=== PATIENT | female | born 1955 | race Caucasian/White ===

== ENCOUNTER 2018-04-20 03:54 | Emergency (ER) | payer OTHER ==
[2018-04-20 04:14] VITALS: TEMP 98.4; BMI 35.5
--- NOTE | 2018-04-20 05:34 | PDOC ---
History of Present Illness - General Chief Complaint: Back Pain Stated Complaint: LOWER BACK PAIN Time Seen by Provider: 04/20/18 04:13 History Source: Patient - History of Present Illness Initial Comments: 04/20/18 05:18 62 year old female with b/l lower back painx1 day. took tylenol with minimal relief in pain. reports pain radiating to b/l upper thigh.denies trauma /. fall. patient has been picking up grandson. denies dysuria/ fever/ chills, nausea and vomiting PMHX: chronic back pain; fibromyalgia; sciatica 04/20/18 06:40 Past History - Past Medical History Allergies/Adverse Reactions: Allergies Allergy/AdvReac Type Severity Reaction Status Date / Time ibuprofen Allergy Mild Swelling Verified 04/20/18 04:14 contrast dye AdvReac Uncoded 04/20/18 04:14 Home Medications: Ambulatory Orders Acetaminophen [Tylenol] 325 mg PO QID PRN 11/20/15 Aspirin [ASA -] 81 mg PO DAILY 11/20/15 Pramipexole Di-HCl [Mirapex] 0.25 mg PO DAILY 11/20/15 Topiramate 12.5 mg PO DAILY 11/20/15 Cefuroxime Axetil [Cefuroxime] 500 mg PO BID #20 tablet 04/20/18 Cyclobenzaprine HCl [Flexeril -] 10 mg PO HS PRN #7 tablet 04/20/18 Oxycodone HCl/Acetaminophen [Percocet 5-325 mg Tablet] 1 tab PO Q6H PRN #7 tablet MDD 4 04/20/18 COPD: No Diabetes: Yes HTN: Yes - Immunization History Immunization Up to Date: Yes - Suicide/Smoking/Psychosocial Hx Smoking History: Never smoked Have you smoked in the past 12 months: No Information on smoking cessation initiated: No Hx Alcohol Use: No Drug/Substance Use Hx: No Substance Use Type: None *Physical Exam - Vital Signs Last Vital Signs Temp Pulse Resp BP Pulse Ox 98.4 F 91 H 19 170/68 97 04/20/18 04:11 04/20/18 04:11 04/20/18 04:11 04/20/18 04:11 04/20/18 04:11 - Physical Exam General Appearance: Yes: Appropriately Dressed Respiratory/Chest: positive: Lungs Clear, Normal Breath Sounds Cardiovascular: positive: Regular Rhythm, Regular Rate Gastrointestinal/Abdominal: positive: Normal Bowel Sounds, Soft Musculoskeletal: positive: Muscle Spasm (to b/l lower back pain). negative: Vertebral Tenderness Extremity: positive: Normal Capillary Refill, Normal Inspection, Normal Range of Motion Integumentary: positive: Normal Color, Dry, Warm Neurologic: positive: Fully Oriented, Alert, Normal Mood/Affect Moderate Sedation - Procedure Monitoring Vital Signs: Procedure Monitoring Vital Signs Temperature 98.4 F 04/20/18 04:11 Pulse Rate 91 H 04/20/18 04:11 Respiratory Rate 19 04/20/18 04:11 Blood Pressure 170/68 04/20/18 04:11 O2 Sat by Pulse Oximetry (%) 97 04/20/18 04:11 ED Treatment Course - Medications Given in the ED: ED Medications Discontinued Medications Generic Name Dose Route Start Last Admin Trade Name Freq PRN Reason Stop Dose Admin Oxycodone/Acetaminophen 1 combo 04/20/18 04:22 04/20/18 04:41 Percocet 5/325 - PO 04/20/18 04:23 1 combo ONCE ONE Administration Medical Decision Making - Medical Decision Making 04/20/18 06:05 pain improved after percocet. will 04/20/18 06:46 CT spiral: Fatty liver. No renal stones. No definite evidence of acute pathology will d/c home *DC/Admit/Observation/Transfer Diagnosis at time of Disposition: Musculoskeletal pain Urinary tract infection Qualifiers: Urinary tract infection type: acute cystitis Hematuria presence: without hematuria Qualified Code(s): N30.00 - Acute cystitis without hematuria - Discharge Dispostion Disposition: HOME Condition at time of disposition: Fair - Prescriptions Prescriptions: Cefuroxime Axetil [Cefuroxime] 500 mg PO BID #20 tablet Cyclobenzaprine HCl [Flexeril -] 10 mg PO HS PRN #7 tablet PRN Reason: Muscle Spasms Oxycodone HCl/Acetaminophen [Percocet 5-325 mg Tablet] 1 tab PO Q6H PRN #7 tablet MDD 4 PRN Reason: Back Pain - Referrals Referrals: Jacqueline Pearce MD [Primary Care Provider] - 24 hours - Patient Instructions Printed Discharge Instructions: Urinary Tract Infection, Muscle Strain Additional Instructions: drink plenty of fluids follow up with your doctor as soon as possible - Post Discharge Activity
[2018-04-20 05:43] LABS: URINE APPEARANCE CLEAR; URINE BILIRUBIN NEGATIVE (<2.0 mg/dL); URINE COLOR STRAW; URINE GLUCOSE (UA) NEGATIVE (NEGATIVE); URINE KETONE NEGATIVE (NEGATIVE); URINE LEUK ESTERASE 3+ (NEGATIVE); URINE NITRITE NEGATIVE (NEGATIVE); URINE PROTEIN NEGATIVE (NEGATIVE); URINE UROBILINOGEN NEGATIVE mg/dL (0.2-1.0)
[2018-04-20 05:49] LABS: EPI CELLS FEW /HPF (FEW); URINE BACTERIA FEW /hpf (NONE SEEN); URINE MUCUS RARE
[2018-04-20 06:53] VITALS: BP 142/78; PULSE 87
== END 2018-04-20 06:53 | disposition home or self-care (01) ==
LOC: JER 03:54
DX: N30.00 Acute cystitis without hematuria (principal); M54.40 Lumbago with sciatica, unspecified side; G89.29 Other chronic pain
CPT/HCPCS: 74176; 81003; 81015; 87077; 87086; 99282-25

== ENCOUNTER 2022-01-22 18:32 | Emergency (ER) | payer OTHER ==
[2022-01-22 18:40] VITALS: BP 132/78; PULSE 89; RESP 18; TEMP 97; BMI 36.6
[2022-01-22] MEDS ORDERED: ACETAMINOPHEN 1000 MG/100 ML BAG IVPB ONE (20:32)
[2022-01-22] MEDS ORDERED: METHOCARBAMOL 500 MG TABLET PO ONE (20:32)
[2022-01-22] MEDS ORDERED: ACETAMINOPHEN INJECTION 100 ML IVPB ONE (21:21)
[2022-01-22] MEDS ORDERED: METHOCARBAMOL 500 MG TABLET ONE (21:21)
[2022-01-22 22:02] LABS: BASO % 0.6 % (0-2.0); EOS % 2.5 % (0-4.5); HEMATOCRIT 40.4 % (32.4-45.2); HEMOGLOBIN 13.1 GM/dL (10.7-15.3); LYMPH % 42.4 % (8-40); MCH 28.5 pg (25.7-33.7); MCHC 32.4 g/dl (32.0-36.0); MEAN CELL VOLUME 88.1 fl (80-96); MEAN PLT VOLUME 7.6 fl (7.5-11.1); MONO % 8.2 % (3.8-10.2); NEUT % 46.3 % (42.8-82.8); PLATELET COUNT 364 10^3/uL (134-434); RBC 4.58 M/mm3 (3.60-5.2); RDW 13.4 % (11.6-15.6); WHITE BLOOD COUNT 7.4 K/mm3 (4.0-10.0)
[2022-01-22 22:18] LABS: CHLORIDE 108 mmol/L (98-107); SODIUM 140 mmol/L (136-145)
[2022-01-22 22:22] LABS: ALBUMIN 3.6 g/dl (3.4-5.0); ANION GAP 5 MMOL/L (8-16); BLOOD UREA NITROGEN 13.9 mg/dL (7-18); CALCIUM 9.3 mg/dL (8.5-10.1); CO2 27 mmol/L (21-32); GLUCOSE,RANDOM 88 mg/dL (74-106)
[2022-01-22 22:25] LABS: CREATININE 0.5 mg/dL (0.55-1.3); SGOT/AST 26 U/L (15-37); SGPT/ALT 45 U/L (13-61)
[2022-01-22 22:27] LABS: BILIRUBIN,TOTAL 0.4 mg/dL (0.2-1); TOT PROT 7.3 g/dl (6.4-8.2)
[2022-01-22 22:28] LABS: ALK PHOS 69 U/L (45-117)
== END 2022-01-22 23:30 | disposition home or self-care (01) ==
LOC: JER 18:32
PROC: 3E033NZ Introduction of Analgesics, Hypnotics, Sedatives into Peripheral Vein, Percutaneous Approach (ICD-10-PCS; principal; 2022-01-22)
DX: R07.9 Chest pain, unspecified (principal); M54.9 Dorsalgia, unspecified
CPT/HCPCS: 36415; 71045-TC-FY; 80053; 84484; 85025; 93005; 93010; 99284-25; C9803-CS; U0003; U0005